=== PATIENT | female | born 1980 | race Caucasian/White ===

== ENCOUNTER 2022-06-29 12:48 | Outpatient (CLI) | payer BC | END 2022-06-29 12:49 | disposition home or self-care (01) | LOC: DTY/OP 12:48 | PROVIDERS: ATTEND Surgery | DX: K21.9 Gastro-esophageal reflux disease without esophagitis (principal); E78.00 Pure hypercholesterolemia, unspecified; R73.09 Other abnormal glucose; Z68.41 Body mass index [BMI] 40.0-44.9, adult; Z71.3 Dietary counseling and surveillance | CPT/HCPCS: 97802 ==

== ENCOUNTER 2023-02-03 11:00 | Inpatient (IN) | payer BC ==
[2023-02-06] MEDS ORDERED: Scopolamine 1.5 mg/72 hour Patch ONE (07:42)
[2023-02-06] MEDS ORDERED: EPINEPHrine 1 MG/ML AMP ONE (07:48)
[2023-02-06] MEDS ORDERED: Bupivacaine 0.25% HCL 30 ML VIAL ONE (07:48)
[2023-02-06] MEDS ORDERED: fentaNYL PF 100 MCG/2 ML SYRINGE ONE (08:24)
[2023-02-06] MEDS ORDERED: HYDROmorphone 0.5 MG/0.5 ML SYRINGE ONE (08:25)
[2023-02-06] MEDS ORDERED: Dexmedetomidine 200 MCG/2 ML VIAL ONE (08:25)
[2023-02-06] MEDS ORDERED: cefOXitin 2 GM VIAL ONE (08:38)
[2023-02-06] MEDS ORDERED: Sodium Chloride 0.9% 100 ML ONE (08:38)
[2023-02-06] MEDS ORDERED: NEOSTIGMINE 3 MG/3 ML SYR 3 MG/3 ML SYRINGE ONE (08:45)
[2023-02-06] MEDS ORDERED: Dexamethasone 20 MG/5 ML VIAL ONE (08:45)
[2023-02-06] MEDS ORDERED: Glycopyrrolate 0.2 MG/ML 5 ML SYRINGE ONE (08:45)
[2023-02-06] MEDS ORDERED: PROPOFOL 200 MG/20 ML VIAL ONE (08:45)
[2023-02-06] MEDS ORDERED: Rocuronium Bromide 10 MG/ML (10ML VIAL) ONE (08:45)
[2023-02-06] MEDS ORDERED: Ondansetron PF 4 MG/2 ML Vial ONE (08:45)
[2023-02-06] MEDS ORDERED: SUGAMMADEX SODIUM 200 MG/2 ML VIAL ONE (10:19)
[2023-02-06] MEDS ORDERED: Ondansetron PF 4 MG/2 ML Vial IVP PRN (10:27)
[2023-02-06] MEDS ORDERED: Promethazine HCl 25 MG/ML VIAL IM PRN ×2 (10:27→10:35)
[2023-02-06] MEDS ORDERED: Ipratropium/Albuterol 3 ML NEB NEB PRN (10:27)
[2023-02-06] MEDS ORDERED: Dextrose 5% in Water 1,000 ML IV PRN (10:27)
[2023-02-06] MEDS ORDERED: Morphine 2 MG/ML VIAL SLOW IVP PRN (10:27)
[2023-02-06] MEDS ORDERED: Dextrose 50% Abboject 50 ML SYRINGE SLOW IVP PRN (10:27)
[2023-02-06] MEDS ORDERED: Hydrocodone-Acetamin 15 ML UDCUP PO PRN (10:27)
[2023-02-06] MEDS ORDERED: hydrALAZINE 20 MG/ML VIAL SLOW IVP PRN (10:27)
[2023-02-06] MEDS ORDERED: diphenhydrAMINE 50 MG/ML VIAL IVP PRN (10:27)
[2023-02-06] MEDS ORDERED: Glucagon 1 MG/ML KIT IM PRN (10:27)
[2023-02-06] MEDS ORDERED: Ketorolac Tromethamine 30 MG/ML VIAL IVP PRN (10:35)
[2023-02-06] MEDS ORDERED: HYDROmorphone 2 MG/ML VIAL SLOW IVP PRN (10:35)
[2023-02-06] MEDS ORDERED: Ondansetron HCl/PF 4 MG/2 ML Vial IVP PRN (10:35)
[2023-02-06] MEDS ORDERED: fentaNYL 50 mcg/mL 1 mL Vial ONE ×4 (10:48→11:50)
[2023-02-06] MEDS ORDERED: Ketorolac Tromethamine 30 MG/ML VIAL ONE (10:48)
[2023-02-06] MEDS: D5 1/2 NS w/20 mEq KCL 1,000 ML IV SCH ×2 (12:00→20:47)
[2023-02-06] MEDS: Ketorolac Tromethamine 30 MG/ML VIAL IVP SCH ×3 (13:52→23:43)
[2023-02-06 16:54] VITALS: BMI 44.9
[2023-02-07] MEDS: D5 1/2 NS w/20 mEq KCL 1,000 ML IV SCH (04:51)
[2023-02-07] MEDS: Ketorolac Tromethamine 30 MG/ML VIAL IVP SCH (05:07)
[2023-02-07 08:42] VITALS: BP 126/75; TEMP 98.4
[2023-02-07] MEDS ORDERED: Pantoprazole 40 MG VIAL IVP SCH (09:00)
== END 2023-02-07 11:00 | disposition home or self-care (01) | DRG 621 ==
LOC: SURG A 02-06 06:22 → SURG B 02-06 12:05
PROVIDERS: ADMIT Surgery; ATTEND Surgery
PROC: 0DB64Z3 Excision of Stomach, Percutaneous Endoscopic Approach, Vertical (ICD-10-PCS; principal; 2023-02-06)
PROC: 8E0W4CZ Robotic Assisted Procedure of Trunk Region, Percutaneous Endoscopic Approach (ICD-10-PCS; 2023-02-06)
PROC: 3E033XZ Introduction of Vasopressor into Peripheral Vein, Percutaneous Approach (ICD-10-PCS; 2023-02-06)
DX: E66.01 Morbid (severe) obesity due to excess calories (principal); I10 Essential (primary) hypertension; K21.9 Gastro-esophageal reflux disease without esophagitis; Z88.2 Allergy status to sulfonamides; Z91.018 Allergy to other foods; Z68.41 Body mass index [BMI] 40.0-44.9, adult; Z90.49 Acquired absence of other specified parts of digestive tract
CPT/HCPCS: 36416; 88307; 94760; C9113; J0171; J0694; J1100; J1170; J1650; J1885; J2272; J2405; J2704; J3010; J3480; J3490; S0020

== ENCOUNTER 2023-10-10 07:40 | Outpatient (CLI) | payer BC | END 2023-10-10 07:41 | disposition home or self-care (01) | LOC: SCSMRI 07:40 | PROVIDERS: ATTEND Physician Assistant | DX: R29.898 Other symptoms and signs involving the musculoskeletal system (principal); M47.817 Spondylosis without myelopathy or radiculopathy, lumbosacral region | CPT/HCPCS: 72148 ==